=== PATIENT | female | born 1935 | race Caucasian/White ===

== ENCOUNTER 2019-06-13 09:21 | Day surgery (SDC) | payer MEDICARE ==
[~2019-06-13] VITALS: Ht 154.9 cm; Wt 94.5 kg
[2019-06-13] VITALS (14 sets, daily range): BP systolic 120–143; BP diastolic 56–94
[2019-06-13] MEDS ORDERED: fentaNYL/PF 50MCG/1 ML 2ML syringe IV ONE (09:50)
[2019-06-13] MEDS ORDERED: MIDAZolam 5mg/ml 2ml vial IV ONE (09:50)
[2019-06-13] MEDS ORDERED: normal saline 1000ml 1,000 ML IV SCH (09:50)
[2019-06-13] MEDS ORDERED: CAT2P TD (10:18)
[2019-06-13] MEDS ORDERED: LIOT25TA6 PO (10:18)
[2019-06-13] MEDS ORDERED: RIVA20TA PO (10:18)
[2019-06-13] MEDS ORDERED: HYDR-4353 PO (10:18)
[2019-06-13] MEDS ORDERED: MULT-955 PO (10:18)
[2019-06-13] MEDS ORDERED: TEST5GEL2 TOP (10:18)
[2019-06-13] MEDS ORDERED: DILT120C88 PO (10:18)
[2019-06-13] MEDS ORDERED: AMIO200T61 PO (10:18)
[2019-06-13] MEDS ORDERED: MAGN400C PO (10:18)
[2019-06-13] MEDS ORDERED: OMEG1CAP PO (10:18)
[2019-06-13] MEDS ORDERED: NIA500ERT PO (10:18)
[2019-06-13] MEDS ORDERED: ASPI81TA52 PO (10:18)
[2019-06-13] MEDS ORDERED: PROG100C11 PO (10:18)
[2019-06-13] MEDS ORDERED: VITA40TA PO (10:18)
[2019-06-13] MEDS ORDERED: DULO-31 PO (10:18)
[2019-06-13] MEDS ORDERED: METF-438 PO (10:18)
[2019-06-13] MEDS ORDERED: NEBI10TA2 PO (10:18)
[2019-06-13] MEDS ORDERED: LOSA50TA3 PO (10:18)
[2019-06-13] MEDS ORDERED: DIGO125T PO (10:18)
[2019-06-13 10:53] LABS: BASOPHILS % (AUTO) 0.3 % (0-1); EOSINOPHILS # (AUTO) 0.2 X10'3 (0-0.9); EOSINOPHILS % (AUTO) 2.7 % (0-6); HEMATOCRIT 35.8 % (35.0-45.0); HEMOGLOBIN 12.1 g/dl (12.0-16.0); LYMPHOCYTES # (AUTO) 1.2 X10'3 (1.1-4.8); LYMPHOCYTES % (AUTO) 22.2 % (21-51); MEAN CORPUSCULAR HEMOGLOBIN 30.5 PG (27.0-31.0); MEAN CORPUSCULAR HGB CONC 33.7 g/dL (33.0-36.5); MEAN CORPUSCULAR VOLUME 90.4 FL (78-98); MEAN PLATELET VOLUME 7.5 FL (7.4-10.4); MONOCYTES # (AUTO) 0.5 X10'3 (0-0.9); MONOCYTES % (AUTO) 8.5 % (2-12); NEUTROPHILS # (AUTO) 3.7 X10'3 (1.8-7.7); NEUTROPHILS % (AUTO) 66.3 % (42-75); PLATELET COUNT 245 X10'3 (140-440); RED BLOOD COUNT 3.97 X10'6 (4.20-5.60); RED CELL DISTRIBUTION WIDTH 14.6 % (11.5-14.5); WHITE BLOOD COUNT 5.6 X10'3 (4.5-11.0)
[2019-06-13 11:04] LABS: ALBUMIN 3.9 G/DL (3.4-5.0); ANION GAP 12 (8-16); BLOOD UREA NITROGEN 20 MG/DL (7-18); BUN/CREATININE RATIO 24.4 (6.6-38.0); CALCIUM 9.9 MG/DL (8.5-10.1); CHLORIDE 104 MMOL/L (99-107); CREATININE 0.82 MG/DL (0.40-0.90); GLUCOSE 105 MG/DL (70-104); MAGNESIUM 1.7 MG/DL (1.5-2.4); POTASSIUM 4.8 MMOL/L (3.5-5.1); SODIUM 140 MMOL/L (135-145); TOTAL CARBON DIOXIDE 24.3 MMOL/L (24-32); eGFR 67 ML/MIN
[2019-06-13] MEDS ORDERED: amiodarone 150mg/dext, iso-os 100 ML IV STA ×2 (11:19)
== END 2019-06-13 13:50 | disposition home or self-care (01) ==
LOC: SSTAY O 09:21
PROVIDERS: ATTEND Internal Medicine Cardiovascular Disease
DX: I48.1 Persistent atrial fibrillation (principal); I10 Essential (primary) hypertension; E78.5 Hyperlipidemia, unspecified; E03.9 Hypothyroidism, unspecified; E11.9 Type 2 diabetes mellitus without complications; G47.33 Obstructive sleep apnea (adult) (pediatric); M19.90 Unspecified osteoarthritis, unspecified site; I45.10 Unspecified right bundle-branch block; E66.09 Other obesity due to excess calories; Z68.37 Body mass index [BMI] 37.0-37.9, adult; Z88.8 Allergy status to other drugs, medicaments and biological substances; Z98.890 Other specified postprocedural states; Z90.710 Acquired absence of both cervix and uterus; Z96.659 Presence of unspecified artificial knee joint; Z79.899 Other long term (current) drug therapy; Z79.82 Long term (current) use of aspirin
CPT/HCPCS: 36415; 80048; 83735; 85025; 85610; 92960; 93005; J0282; J2250; J3010; J7030

== ENCOUNTER 2019-07-21 09:36 | Day surgery (SDC) | payer MEDICARE ==
[~2019-07-21] VITALS: Ht 154.9 cm; Wt 82.9 kg
[2019-07-21] VITALS (12 sets, daily range): BP systolic 115–137; BP diastolic 57–98
[~2019-07-21 09:36] MED LIST: AMIO200T61 PO; ASPI81TA52 PO; CAT2P TD; DIGO125T PO; DILT120C88 PO; DULO-31 PO; HYDR-4353 PO; LIOT25TA6 PO; LOSA50TA3 PO; MAGN400C PO; METF-438 PO; MULT-955 PO; NEBI10TA2 PO; NIA500ERT PO; OMEG1CAP PO; PROG100C11 PO; RIVA20TA PO; TEST5GEL2 TOP; VITA40TA PO
[2019-07-21] MEDS ORDERED: fentaNYL/PF 50MCG/1 ML 2ML syringe IV ONE (10:05)
[2019-07-21] MEDS ORDERED: normal saline 1000ml 1,000 ML IV SCH (10:05)
[2019-07-21] MEDS ORDERED: MIDAZolam 5mg/ml 2ml vial IV ONE (10:05)
[2019-07-21] MEDS ORDERED: MELA1TAB9 PO (10:22)
[2019-07-21 10:55] LABS: BASOPHILS % (AUTO) 0.4 % (0-1); EOSINOPHILS # (AUTO) 0.1 X10'3 (0-0.9); EOSINOPHILS % (AUTO) 2.4 % (0-6); HEMATOCRIT 38.4 % (35.0-45.0); HEMOGLOBIN 12.8 g/dl (12.0-16.0); LYMPHOCYTES # (AUTO) 2.2 X10'3 (1.1-4.8); LYMPHOCYTES % (AUTO) 37.4 % (21-51); MEAN CORPUSCULAR HEMOGLOBIN 29.9 PG (27.0-31.0); MEAN CORPUSCULAR HGB CONC 33.3 g/dL (33.0-36.5); MEAN CORPUSCULAR VOLUME 89.8 FL (78-98); MEAN PLATELET VOLUME 8.2 FL (7.4-10.4); MONOCYTES # (AUTO) 0.5 X10'3 (0-0.9); MONOCYTES % (AUTO) 7.9 % (2-12); NEUTROPHILS % (AUTO) 51.9 % (42-75); PLATELET COUNT 284 X10'3 (140-440); RED BLOOD COUNT 4.28 X10'6 (4.20-5.60); WHITE BLOOD COUNT 5.8 X10'3 (4.5-11.0)
[2019-07-21 11:06] LABS: ALBUMIN 3.4 G/DL (3.4-5.0); ANION GAP 7 (8-16); BLOOD UREA NITROGEN 18 MG/DL (7-18); BUN/CREATININE RATIO 22.5 (6.6-38.0); CALCIUM 9.7 MG/DL (8.5-10.1); CHLORIDE 106 MMOL/L (99-107); GLUCOSE 109 MG/DL (70-104); MAGNESIUM 1.8 MG/DL (1.5-2.4); POTASSIUM 4.2 MMOL/L (3.5-5.1); SODIUM 141 MMOL/L (135-145); TOTAL CARBON DIOXIDE 27.9 MMOL/L (24-32); eGFR 69 ML/MIN
--- NOTE | 2019-07-21 12:40 | NUR ---
RT was called. MD at bedside.
--- NOTE | 2019-07-21 12:45 | NUR ---
CORRECTION: PT RECEIVED VERSED, NOT MORPHINE, CORRECTION MADE ON ADMINISTRATION RECORD
== END 2019-07-21 14:50 | disposition home or self-care (01) ==
LOC: SSTAY O 09:36
PROVIDERS: ATTEND Internal Medicine Cardiovascular Disease
DX: I48.19 Other persistent atrial fibrillation (principal); I10 Essential (primary) hypertension; I47.1 Supraventricular tachycardia; E78.5 Hyperlipidemia, unspecified; E11.9 Type 2 diabetes mellitus without complications; G47.33 Obstructive sleep apnea (adult) (pediatric); E03.9 Hypothyroidism, unspecified; M19.90 Unspecified osteoarthritis, unspecified site; E66.09 Other obesity due to excess calories; Z68.34 Body mass index [BMI] 34.0-34.9, adult; Z79.899 Other long term (current) drug therapy; Z79.82 Long term (current) use of aspirin; Z90.710 Acquired absence of both cervix and uterus; Z98.890 Other specified postprocedural states; Z88.1 Allergy status to other antibiotic agents; Z88.8 Allergy status to other drugs, medicaments and biological substances; Z72.89 Other problems related to lifestyle
CPT/HCPCS: 36415; 80048; 83735; 85025; 85610; 92960; 93005; 94760; J2250; J3010; J7030

== ENCOUNTER 2019-08-04 07:25 | Inpatient (IN) | payer MEDICARE ==
[2019-07-30 13:17] LABS: BASOPHILS % (AUTO) 0.3 % (0-1); EOSINOPHILS # (AUTO) 0.1 X10'3 (0-0.9); EOSINOPHILS % (AUTO) 1.7 % (0-6); LYMPHOCYTES # (AUTO) 1.7 X10'3 (1.1-4.8); LYMPHOCYTES % (AUTO) 24.5 % (21-51); MEAN CORPUSCULAR HEMOGLOBIN 30.1 PG (27.0-31.0); MEAN CORPUSCULAR HGB CONC 33.3 g/dL (33.0-36.5); MEAN CORPUSCULAR VOLUME 90.4 FL (78-98); MEAN PLATELET VOLUME 8.4 FL (7.4-10.4); MONOCYTES # (AUTO) 0.6 X10'3 (0-0.9); MONOCYTES % (AUTO) 8.1 % (2-12); NEUTROPHILS # (AUTO) 4.5 X10'3 (1.8-7.7); NEUTROPHILS % (AUTO) 65.4 % (42-75); PRE OP HEMATOCRIT 36.2 % (35.0-45.0); PRE OP HEMOGLOBIN 12.1 g/dL (12.0-16.0); PRE OP PLATELET COUNT 262 X10'3 (140-440); RED CELL DISTRIBUTION WIDTH 15.6 % (11.5-14.5)
[2019-07-30 13:28] LABS: PRE OP PROTIME 16.6 SECONDS (9.0-12.0)
[2019-07-30 13:32] LABS: HEMOGLOBIN A1C 6.3 % (4.5-6.2); PRE OP INR 1.6 INR
[2019-07-30 13:39] LABS: ALBUMIN 3.3 G/DL (3.4-5.0); ALBUMIN/GLOBULIN RATIO 0.7 (1.1-1.5); ALKALINE PHOSPHATASE 72 IU/L (46-116); BLOOD UREA NITROGEN 17 MG/DL (7-18); BUN/CREATININE RATIO 21.3 (6.6-38.0); CALCIUM 9.4 MG/DL (8.5-10.1); CHLORIDE 105 MMOL/L (99-107); PRE OP ALT 45 U/L (30-65); PRE OP ANION GAP 7 (8-16); PRE OP AST 27 U/L (10-37); PRE OP BILIRUB, TOTAL 0.5 MG/DL (0.0-1.0); PRE OP GLUCOSE 105 MG/DL (70-104); PRE OP POTASSIUM 4.3 MMOL/L (3.4-5.1); PRE OP SODIUM 139 MMOL/L (135-145); TOTAL CARBON DIOXIDE 27.5 MMOL/L (24-32); TOTAL PROTEIN 7.8 G/DL (6.4-8.2); eGFR 69 ML/MIN
[2019-08-04] VITALS (13 sets, daily range): BP systolic 118–148; BP diastolic 66–109
[~2019-08-04] VITALS: Ht 154.9 cm; Wt 81.6 kg
[~2019-08-04 07:25] MED LIST changes: +BETA300T PO; +CHOL100053 PO; +CHRO400T10 PO; -LIOT25TA6 PO; -LOSA50TA3 PO; -MAGN400C PO; +MELA1TAB9 PO; -OMEG1CAP PO; +OMEG1CAP46 PO; +PRAS1TAB3 PO; +RAW PROBIOTICS; -TEST5GEL2 TOP; +TESTOSTERONE; +THIO300C PO; +THRE500T PO; +THYR120T2 PO; +[UNRECOGNIZED DRUG - CODE]; +[UNRECOGNIZED DRUG - CODE] PO; +[UNRECOGNIZED DRUG - OTHER]; +[UNRECOGNIZED DRUG - OTHER]; +[UNRECOGNIZED DRUG - OTHER]
[2019-08-04] MEDS ORDERED: LIDOcaine 1% (10mg/ml) 2ml vial ONE (07:52)
[2019-08-04 10:04] LABS: PRE OP PROTIME 10.3 SECONDS (9.0-12.0)
[2019-08-04] MEDS ORDERED: albuterol 2.5 MG/3 ML nebule NEB ONE (12:30)
[2019-08-04] MEDS ORDERED: ringers solution, lacted 1,000 ML IV SCH ×2 (12:30→14:54)
[2019-08-04] MEDS ORDERED: vancomycin inj 1,500 MG in normal saline 300ml IV soln IV ONE (12:30)
[2019-08-04] MEDS ORDERED: DOCUMENT DATE & TIME OF BETA-BLOCKER PO ONE (12:30)
[2019-08-04] MEDS ORDERED: famotidine 20mg tablet PO ONE (12:30)
[2019-08-04] MEDS ORDERED: cefazolin/dext.iso 2gm/100 ML IV ONE (12:30)
[2019-08-04] MEDS ORDERED: fentaNYL/PF 50MCG/1 ML 2ML syringe ONE (13:07)
[2019-08-04] MEDS ORDERED: MIDAZolam 5mg/5ml vial ONE (13:08)
[2019-08-04] MEDS ORDERED: dexamethasone sod phosphate 4mg/ml inj. ONE (13:10)
[2019-08-04] MEDS ORDERED: propofol inj 20 ML IV ONE (13:10)
[2019-08-04] MEDS ORDERED: ROPIVAcaine 0.5% (5mg/ml) 30ml vial ONE (13:11)
[2019-08-04] MEDS ORDERED: rocuronium 10mg/ml inj IV ONE (13:17)
[2019-08-04] MEDS ORDERED: sevoflurane 250ml liquid IH ONE (13:17)
[2019-08-04] MEDS ORDERED: vancomycin 1,000mg inj ONE (14:35)
[2019-08-04] MEDS ORDERED: meperidine/PF 25mg/ml syringe IV PRN ×3 (14:55)
[2019-08-04] MEDS ORDERED: morphine 4 MG/ML inj SYRINge IV PRN ×2 (14:55)
[2019-08-04] MEDS ORDERED: ondansetron/PF 4mg/2ml inj IV PRN ×2 (14:55→16:35)
[2019-08-04] MEDS ORDERED: ondansetron/PF 4mg/2ml inj ONE (14:55)
[2019-08-04] MEDS ORDERED: proCHLORperazine 10 MG/2 ml inj IV PRN (14:55)
[2019-08-04] MEDS ORDERED: tranexamic acid inj. 810 MG in normal saline 100ml IV soln 100 ML IV ONE ×5 (15:00→19:30)
--- NOTE | 2019-08-04 16:10 | NUR ---
Received from OR via BED , accompanied by Anesthesiologist DR CORTEZ and report given by Anesthesiolgist. PATIENT WAKING UP, DENIES PAIN, V/S WNL, NEUROVASCULAR CHECKS INTACT, 20G PIV RUE , DRESSING TO LEFT SHOULDER CDI W/ COLD POWDER PACK AND SLING NAND ON QUE BALL AT 4ML/HR W/ SCD ON.
[2019-08-04] MEDS: ROPIVAcaine 0.2%/PF PAIN PUMP 550 ML INTERSCALE SCH (16:15)
[2019-08-04] MEDS ORDERED: oxyCODONE IR 5mg (immed. release) tablet PO PRN (16:35)
[2019-08-04] MEDS ORDERED: diphenhydrAMINE 25mg capsule PO PRN ×2 (16:35)
[2019-08-04] MEDS ORDERED: acetaminophen 325mg tablet PO PRN (16:35)
[2019-08-04] MEDS ORDERED: HYDROmorphone inj. 0.5 MG/0.5 ML DISP.SYRIN IV PRN (16:35)
[2019-08-04] MEDS ORDERED: magnesium hydroxide 30ml (MOM) UD suspension PO PRN (16:35)
[2019-08-04] MEDS ORDERED: HYDROmorphone 1 mg/ml syringe IV PRN (16:35)
[2019-08-04] MEDS ORDERED: bisacodyl 10mg suppository rectal RC PRN (16:35)
[2019-08-04 17:29] LABS: APPEARANCE,SYNOVIAL FLUID CLOUDY; COLOR,SYNOVIAL FLUID YELLOW; SYN WBC 415 /CU MM (0-200)
[2019-08-04 17:30] LABS: SYN RBC 3600 /CU MM (0)
[2019-08-04] MEDS ORDERED: DOXYCYCLINE 100MG CAPSULE PO SCH (17:30)
--- NOTE | 2019-08-04 17:40 | NUR ---
PATIENT A&OX4, DENIES PAIN, V/S WNL, NEUROVASCULAR CHECKS INTACT, 20G PIV RUE , DRESSING TO LEFT SHOULDER CDI W/ COLD POWDER PACK AND SLING NAND ON QUE BALL AT 4ML/HR W/ SCD ON. PATIENT TAKEN TO 4020B WITH ALL BELONGINGS AND HOOKED UP TO MONITORS IN ROOM AND REPORT GIVEN TO EIGHT ARM OPERATOR WHO HAS TAKEN OVER PATIENT CARE.
[2019-08-04 17:42] LABS: LYMPHOCYTES,SYNOVIAL FLUID 70 % (0-75); MONOCYTES,SYNOVIAL FLUID 26 % (0-0); NEUTROPHILS,SYNOVIAL FLUID 4 % (0-25); SYNOVIAL LINING CELLS FEW
--- NOTE | 2019-08-04 18:20 | NUR ---
Received report from Dasha MENEZES, assumed care of patient.
[2019-08-04 19:14] LABS: ALANINE AMINOTRANSFERASE 34 U/L (12-78); ALBUMIN 3.3 G/DL (3.4-5.0); ALBUMIN/GLOBULIN RATIO 0.7 (1.1-1.5); ALKALINE PHOSPHATASE 73 IU/L (46-116); ASPARTATE AMINO TRANSFERASE 34 U/L (10-37); BILIRUBIN,DIRECT 0.1 MG/DL (0-0.3); BILIRUBIN,TOTAL 0.3 MG/DL (0.1-1.0); TOTAL PROTEIN 7.8 G/DL (6.4-8.2)
[2019-08-04] MEDS ORDERED: vancomycin/NS 1 GM ADD-VANTAGE 250 ML IV SCH (20:00)
[2019-08-04] MEDS: acetaminophen 325mg tablet PO SCH (20:27)
[2019-08-04] MEDS: sennosides 8.6mg tablet PO SCH (20:27)
[2019-08-04] MEDS: Melatonin 3mg tablet PO SCH (20:27)
[2019-08-04] MEDS: metFORMIN 500mg tablet PO SCH (20:28)
[2019-08-04] MEDS: metoprolol tartrate 50mg tablet PO SCH (20:28)
[2019-08-04] MEDS: potassium cl 20mEq in 1/2 NS 1,000 ML IV SCH (20:29)
--- NOTE | 2019-08-04 21:46 | NUR ---
In collecting post op vital signs from machine it was observed that not all vital signs have been recorded. Pt currently has VS WNL, which has been assessed throughout the shift. Pt will continue to have vital signs taken per protocol. Addendum: 08/04/19 at 2147 by Zainab Vega RN Amended: Links added.
[2019-08-05] MEDS: oxyCODONE IR 5mg (immed. release) tablet PO PRN ×3 (00:27→19:06)
--- NOTE | 2019-08-05 01:15 | NUR ---
Received report from CLIF Lou. Assumed patient care.
[2019-08-05 02:00] VITALS: BP 118/78
[2019-08-05] MEDS: acetaminophen 325mg tablet PO SCH ×4 (02:00→19:55)
[2019-08-05] MEDS: potassium cl 20mEq in 1/2 NS 1,000 ML IV SCH ×2 (04:00→08:31)
[2019-08-05 06:00] VITALS: BP 156/60
--- NOTE | 2019-08-05 06:04 | NUR ---
Report given to Dasha MENEZES.
[2019-08-05 06:19] LABS: BASOPHILS % (AUTO) 0.1 % (0-1); EOSINOPHILS % (AUTO) 0 % (0-6); HEMATOCRIT 34.3 % (35.0-45.0); HEMOGLOBIN 11.3 g/dl (12.0-16.0); LYMPHOCYTES # (AUTO) 1.7 X10'3 (1.1-4.8); LYMPHOCYTES % (AUTO) 14.1 % (21-51); MEAN CORPUSCULAR HEMOGLOBIN 29.8 PG (27.0-31.0); MEAN CORPUSCULAR HGB CONC 33.1 g/dL (33.0-36.5); MEAN CORPUSCULAR VOLUME 90.2 FL (78-98); MEAN PLATELET VOLUME 8.1 FL (7.4-10.4); MONOCYTES # (AUTO) 0.2 X10'3 (0-0.9); MONOCYTES % (AUTO) 1.8 % (2-12); NEUTROPHILS # (AUTO) 9.8 X10'3 (1.8-7.7); PLATELET COUNT 233 X10'3 (140-440); RED CELL DISTRIBUTION WIDTH 15.7 % (11.5-14.5); WHITE BLOOD COUNT 11.7 X10'3 (4.5-11.0)
[2019-08-05 06:35] LABS: ANION GAP 11 (8-16); CHLORIDE 105 MMOL/L (99-107); POTASSIUM 5.3 MMOL/L (3.5-5.1); SODIUM 137 MMOL/L (135-145); TOTAL CARBON DIOXIDE 21.5 MMOL/L (24-32)
--- NOTE | 2019-08-05 06:35 | NUR ---
Patient in room ORTHO 4020. I have received report from Zainab Cagle RN and had the opportunity to ask questions and assume patient care.
[2019-08-05] MEDS: OMEGA-3/DHA/EPA/FISH OIL 1 EACH CAPSULE.DR PO SCH (08:00)
[2019-08-05] MEDS: [UNRECOGNIZED DRUG - OTHER] TP SCH (08:00)
[2019-08-05] MEDS ORDERED: TYPE IN GENERIC & BRAND NAME OF PATIENT MED STRENGTH & FORM PO SCH (08:00)
[2019-08-05] MEDS: [UNRECOGNIZED DRUG - OTHER] PO SCH (08:00)
[2019-08-05] MEDS ORDERED: ALPHA LIPOIC ACID PO SCH (08:00)
[2019-08-05] MEDS: niacin 500mg ER (Niaspan) tablet PO SCH (08:00)
[2019-08-05] MEDS: progesterone, micronized 100mg capsule PO SCH (08:00)
[2019-08-05] MEDS ORDERED: CHROMIUM AMINO ACID CHELATE PO SCH (08:00)
[2019-08-05] MEDS ORDERED: METHYLSULFONYLMETHANE PO SCH (08:00)
[2019-08-05] MEDS: TESTOSTERONE PUMP TP SCH (08:00)
[2019-08-05] MEDS: VITAMIN K2 100 MCG PO SCH (08:00)
[2019-08-05] MEDS ORDERED: THREONINE PO SCH (08:00)
[2019-08-05] MEDS: VANCOmycin 1250MG/NS 250ml Bag 250 ML IV SCH ×2 (09:44→20:40)
[2019-08-05 10:00] VITALS: BP 112/47
[2019-08-05] MEDS: diltiazem CD 120mg capsule (once-daily) PO SCH (10:02)
[2019-08-05] MEDS: amiodarone 200mg tablet PO SCH (10:03)
[2019-08-05] MEDS: metFORMIN 500mg tablet PO SCH ×2 (10:03→19:55)
[2019-08-05] MEDS: metoprolol tartrate 50mg tablet PO SCH ×2 (10:05→19:56)
[2019-08-05] MEDS: digoxin 125mcg (0.125mg) tablet PO SCH (10:05)
[2019-08-05] MEDS: multivitamins, therapeutics tablet PO SCH (10:08)
[2019-08-05] MEDS: thyroid, pork 30mg tablet PO SCH (10:08)
[2019-08-05] MEDS: rivaroxaban 20mg tablet PO SCH (10:09)
[2019-08-05] MEDS: vitamin D (cholecalciferol) 1,000 unit tablet PO SCH (10:09)
[2019-08-05] MEDS: aspirin 325mg tablet PO SCH (10:10)
[2019-08-05] MEDS: ROPIVAcaine 0.2%/PF PAIN PUMP 550 ML INTERSCALE SCH (13:53)
--- NOTE | 2019-08-05 14:00 | NUR ---
Pt reports she "may have bumped her left shoulder." C/O pain "4-5" at this time. ON Q currently set at 4ml/hr. ON Q increased to 6ml/hr at 1400. Reassessed approximately 35 minutes later and pt reports shoulder is feeling much better and denies pain at this time. Will continue to monitor.
[2019-08-05] MEDS: duloxetine 30mg CAPSULE.DR PO SCH (14:12)
[2019-08-05 18:00] VITALS: BP 122/61
--- NOTE | 2019-08-05 18:38 | NUR ---
Problems reprioritized. Patient report given, questions answered & plan of care reviewed with CLIF Scott.
[2019-08-05] MEDS: lactobacillus rhamnosus 10,000 MMU CELLS/CAPSULE PO SCH (19:55)
[2019-08-05] MEDS: sennosides 8.6mg tablet PO SCH (20:40)
[2019-08-05] MEDS: Melatonin 3mg tablet PO SCH (20:40)
[2019-08-05 22:00] VITALS: BP 107/44
[2019-08-06] MEDS: oxyCODONE IR 5mg (immed. release) tablet PO PRN ×3 (01:55→13:20)
[2019-08-06] MEDS: acetaminophen 325mg tablet PO SCH ×3 (01:56→13:21)
[2019-08-06 05:18] LABS: BASOPHILS % (AUTO) 0 % (0-1); EOSINOPHILS % (AUTO) 0 % (0-6); HEMATOCRIT 31.1 % (35.0-45.0); HEMOGLOBIN 10.5 g/dl (12.0-16.0); LYMPHOCYTES # (AUTO) 1.8 X10'3 (1.1-4.8); LYMPHOCYTES % (AUTO) 14.9 % (21-51); MEAN CORPUSCULAR HEMOGLOBIN 30.1 PG (27.0-31.0); MEAN CORPUSCULAR HGB CONC 33.7 g/dL (33.0-36.5); MEAN CORPUSCULAR VOLUME 89.1 FL (78-98); MONOCYTES # (AUTO) 0.9 X10'3 (0-0.9); MONOCYTES % (AUTO) 7.7 % (2-12); NEUTROPHILS # (AUTO) 9.2 X10'3 (1.8-7.7); NEUTROPHILS % (AUTO) 77.4 % (42-75); PLATELET COUNT 222 X10'3 (140-440); RED BLOOD COUNT 3.49 X10'6 (4.20-5.60); WHITE BLOOD COUNT 11.9 X10'3 (4.5-11.0)
[2019-08-06 05:33] LABS: ALBUMIN 2.9 G/DL (3.4-5.0); ANION GAP 9 (8-16); BLOOD UREA NITROGEN 17 MG/DL (7-18); BUN/CREATININE RATIO 17.2 (6.6-38.0); C-REACTIVE PROTEIN 0.46 MG/DL (0.0-0.5); CALCIUM 9.1 MG/DL (8.5-10.1); CHLORIDE 107 MMOL/L (99-107); CREATININE 0.99 MG/DL (0.40-0.90); GLUCOSE 138 MG/DL (70-104); POTASSIUM 4.5 MMOL/L (3.5-5.1); SODIUM 142 MMOL/L (135-145); TOTAL CARBON DIOXIDE 26.2 MMOL/L (24-32); eGFR 54 ML/MIN
[2019-08-06 06:00] VITALS: BP_SYST 125; BP_SYST 132; BP_DIAS 67; BP_DIAS 71
[2019-08-06] MEDS: TESTOSTERONE PUMP TP SCH (08:00)
[2019-08-06] MEDS: metoprolol tartrate 50mg tablet PO SCH ×2 (08:00→20:54)
[2019-08-06] MEDS: cloNIDine 0.2 MG/24 HR patch (7 day patch) TD SCH (08:00)
[2019-08-06] MEDS: [UNRECOGNIZED DRUG - OTHER] PO SCH (08:00)
[2019-08-06] MEDS: amiodarone 200mg tablet PO SCH (08:00)
[2019-08-06] MEDS: OMEGA-3/DHA/EPA/FISH OIL 1 EACH CAPSULE.DR PO SCH (08:00)
[2019-08-06] MEDS: VITAMIN K2 100 MCG PO SCH (08:00)
[2019-08-06] MEDS: diltiazem CD 120mg capsule (once-daily) PO SCH (08:00)
[2019-08-06] MEDS: progesterone, micronized 100mg capsule PO SCH (08:00)
[2019-08-06] MEDS: [UNRECOGNIZED DRUG - OTHER] TP SCH (08:00)
[2019-08-06] MEDS: aspirin 325mg tablet PO SCH (08:52)
[2019-08-06] MEDS: metFORMIN 500mg tablet PO SCH ×2 (08:52→20:54)
[2019-08-06] MEDS: multivitamins, therapeutics tablet PO SCH (08:52)
[2019-08-06] MEDS: thyroid, pork 30mg tablet PO SCH (08:53)
[2019-08-06] MEDS: lactobacillus rhamnosus 10,000 MMU CELLS/CAPSULE PO SCH ×2 (08:53→20:54)
[2019-08-06] MEDS: duloxetine 30mg CAPSULE.DR PO SCH (08:54)
[2019-08-06] MEDS: vitamin D (cholecalciferol) 1,000 unit tablet PO SCH (08:54)
[2019-08-06] MEDS: rivaroxaban 20mg tablet PO SCH (08:54)
[2019-08-06] MEDS: niacin 500mg ER (Niaspan) tablet PO SCH (08:54)
[2019-08-06] MEDS: digoxin 125mcg (0.125mg) tablet PO SCH (09:02)
[2019-08-06 10:00] VITALS: BP 132/71
[2019-08-06] MEDS: VANCOmycin 1250MG/NS 250ml Bag 250 ML IV SCH ×2 (11:48→20:55)
[2019-08-06 16:30] VITALS: BP 140/92
--- NOTE | 2019-08-06 16:30 | NUR ---
At 16:25 loud sound from patients room was heard. Charge nurse Darlyn, and two patient cares techs and myself all ran to patients room. Patient was found prone on the floor. Assessed patients condition, patient had small amount of blood coming from nose. Patient was awake and alert. Patient was assisted back to bed with help of Physical therapist and outpatient facility physical therapist using Tempo lift. Patient stated "I was reaching back for my smoothie that I was trying to hide and my feet slid out from under me". Physical therapy had just worked with patient, had her in high back chair. Patient stated "I didn't want to bother anyone, I thought I could easily reach my smoothie." Shelbie Farrar PAN SHAKER was notified, CT of head ordered and Xray of shoulder ordered. Patient appeared to fall on heard, small hemotoma on right forehead, bruising to left eyelid and laceration on left side of bridge of nose. Will continue to monitor patients status. Will continue to educate patient on fall reduction, using the call light when needs to get up. Vital signs post fall: T:97.8, HR 80, RR 16, O2:95% RA, BP 140/92(104) Pain 2
[2019-08-06] MEDS ORDERED: acetaminophen 325mg tablet PO PRN (16:35)
[2019-08-06 18:00] VITALS: BP 140/92
--- NOTE | 2019-08-06 18:36 | NUR ---
Problems reprioritized. Patient report given, questions answered & plan of care reviewed with Zainab Dumont RN.
[2019-08-06] MEDS ORDERED: VANCOMYCIN LEVEL IV ONE (20:30)
[2019-08-06] MEDS: sennosides 8.6mg tablet PO SCH (20:55)
[2019-08-06] MEDS: Melatonin 3mg tablet PO SCH (20:55)
[2019-08-06 22:00] VITALS: BP 119/68
[2019-08-07 04:55] LABS: BASOPHILS % (AUTO) 0.1 % (0-1); EOSINOPHILS % (AUTO) 0.3 % (0-6); HEMATOCRIT 30.2 % (35.0-45.0); HEMOGLOBIN 10.1 g/dl (12.0-16.0); LYMPHOCYTES # (AUTO) 3.2 X10'3 (1.1-4.8); LYMPHOCYTES % (AUTO) 34.2 % (21-51); MEAN CORPUSCULAR HEMOGLOBIN 30.5 PG (27.0-31.0); MEAN CORPUSCULAR HGB CONC 33.6 g/dL (33.0-36.5); MEAN CORPUSCULAR VOLUME 90.8 FL (78-98); MEAN PLATELET VOLUME 8.1 FL (7.4-10.4); MONOCYTES # (AUTO) 0.8 X10'3 (0-0.9); MONOCYTES % (AUTO) 8.3 % (2-12); NEUTROPHILS # (AUTO) 5.3 X10'3 (1.8-7.7); NEUTROPHILS % (AUTO) 57.1 % (42-75); PLATELET COUNT 200 X10'3 (140-440); RED BLOOD COUNT 3.33 X10'6 (4.20-5.60); RED CELL DISTRIBUTION WIDTH 16.4 % (11.5-14.5); WHITE BLOOD COUNT 9.3 X10'3 (4.5-11.0)
[2019-08-07] MEDS: oxyCODONE IR 5mg (immed. release) tablet PO PRN ×2 (05:31→10:27)
[2019-08-07 06:00] VITALS: BP 132/66
--- NOTE | 2019-08-07 06:15 | NUR ---
Problems reprioritized. Patient report given, questions answered & plan of care reviewed with Vance RN.
--- NOTE | 2019-08-07 06:39 | NUR ---
Patient in room ORTHO 4020. I have received report from Zainab Dumont RN and had the opportunity to ask questions and assume patient care.
[2019-08-07] MEDS: metFORMIN 500mg tablet PO SCH (07:40)
[2019-08-07] MEDS: diltiazem CD 120mg capsule (once-daily) PO SCH (07:40)
[2019-08-07] MEDS: OMEGA-3/DHA/EPA/FISH OIL 1 EACH CAPSULE.DR PO SCH (07:40)
[2019-08-07] MEDS: amiodarone 200mg tablet PO SCH (07:40)
[2019-08-07] MEDS: lactobacillus rhamnosus 10,000 MMU CELLS/CAPSULE PO SCH (07:40)
[2019-08-07] MEDS: duloxetine 30mg CAPSULE.DR PO SCH (07:40)
[2019-08-07] MEDS: metoprolol tartrate 50mg tablet PO SCH (07:42)
[2019-08-07] MEDS: thyroid, pork 30mg tablet PO SCH (07:43)
[2019-08-07] MEDS: vitamin D (cholecalciferol) 1,000 unit tablet PO SCH (07:43)
[2019-08-07] MEDS: rivaroxaban 20mg tablet PO SCH (07:43)
[2019-08-07] MEDS: niacin 500mg ER (Niaspan) tablet PO SCH (07:43)
[2019-08-07] MEDS: multivitamins, therapeutics tablet PO SCH (07:43)
[2019-08-07] MEDS: aspirin 325mg tablet PO SCH (07:44)
[2019-08-07] MEDS: cloNIDine 0.2 MG/24 HR patch (7 day patch) TD SCH (07:50)
[2019-08-07] MEDS ORDERED: vancomycin/NS 1 GM ADD-VANTAGE 250 ML IV SCH (09:00)
[2019-08-07 09:54] VITALS: BP 119/72
[2019-08-07] MEDS: digoxin 125mcg (0.125mg) tablet PO SCH (10:13)
--- NOTE | 2019-08-07 14:32 | NUR ---
Patient stable for transfer to [facility] today. All belongings sent with patient. PIV out, PICC line remained for Antibiotic therapy.
--- NOTE | 2019-08-07 14:39 | NUR ---
Joint replacement consult: Pt/daughter seen by DALE for written/verbal high protein ed w/ RD contact information provided. Addendum: 08/07/19 at [address] Amended: Links added.
[2019-08-08] MEDS ORDERED: VANCOMYCIN LEVEL IV ONE (20:30)
== END 2019-08-07 12:50 | DRG 496 ==
LOC: PAS IN 07:25 → EDSTATUS 09:30 → ORTHO 4S 17:45
PROVIDERS: ADMIT Orthopaedic Surgery; ATTEND Orthopaedic Surgery
PROC: 3E0T3BZ Introduction of Anesthetic Agent into Peripheral Nerves and Plexi, Percutaneous Approach (ICD-10-PCS; 2019-08-04)
PROC: 0RHK08Z Insertion of Spacer into Left Shoulder Joint, Open Approach (ICD-10-PCS; 2019-08-04)
PROC: 0RPK0JZ Removal of Synthetic Substitute from Left Shoulder Joint, Open Approach (ICD-10-PCS; principal; 2019-08-04 13:17)
PROC: 02HV33Z Insertion of Infusion Device into Superior Vena Cava, Percutaneous Approach (ICD-10-PCS; 2019-08-06)
PROC: 5A09357 Assistance with Respiratory Ventilation, Less than 24 Consecutive Hours, Continuous Positive Airway Pressure (ICD-10-PCS; 2019-08-06)
PROC: 5A09357 Assistance with Respiratory Ventilation, Less than 24 Consecutive Hours, Continuous Positive Airway Pressure (ICD-10-PCS; 2019-08-07)
DX: T84.59XA Infection and inflammatory reaction due to other internal joint prosthesis, initial encounter (principal); D62 Acute posthemorrhagic anemia; M75.122 Complete rotator cuff tear or rupture of left shoulder, not specified as traumatic; E03.9 Hypothyroidism, unspecified; E11.9 Type 2 diabetes mellitus without complications; E78.5 Hyperlipidemia, unspecified; I10 Essential (primary) hypertension; I48.91 Unspecified atrial fibrillation; F32.9 Major depressive disorder, single episode, unspecified; D72.819 Decreased white blood cell count, unspecified; G89.29 Other chronic pain; Z96.653 Presence of artificial knee joint, bilateral; Z96.611 Presence of right artificial shoulder joint; Y83.1 Surgical operation with implant of artificial internal device as the cause of abnormal reaction of the patient, or of later complication, without mention of misadventure at the time of the procedure; Z88.1 Allergy status to other antibiotic agents; Z88.6 Allergy status to analgesic agent; Z79.899 Other long term (current) drug therapy; Z79.890 Hormone replacement therapy; Z88.0 Allergy status to penicillin; Z90.710 Acquired absence of both cervix and uterus; Z98.51 Tubal ligation status; Z86.14 Personal history of Methicillin resistant Staphylococcus aureus infection; Y92.89 Other specified places as the place of occurrence of the external cause; W07.XXXA Fall from chair, initial encounter; Y93.89 Activity, other specified; Y92.238 Other place in hospital as the place of occurrence of the external cause; Y99.8 Other external cause status
CPT/HCPCS: 36415; 36569; 70450; 71045; 71046; 73020; 76937; 80048; 80051; 80053; 80076; 80162; 80202; 82948; 83036; 84439; 84443; 85025; 85610; 85651; 85730; 86140; 86885; 86900; 86901; 87015; 87070; 87075; 87081; 87102; 89051; 97110; 97116; 97162; 97530; A4565; A4618; A7000; C1713; C1776; G0378; J1100; J2001; J2250; J2405; J2704; J2795; J3010; J3370; J3480; J7120

== ENCOUNTER 2019-08-13 17:29 | Inpatient (IN) | payer MEDICARE ==
[~2019-08-13] VITALS: Ht 157.5 cm; Wt 95.0 kg
[2019-08-13 18:57] LABS: BASOPHILS % (AUTO) 0.6 % (0-1); EOSINOPHILS # (AUTO) 0.1 X10'3 (0-0.9); EOSINOPHILS % (AUTO) 1.1 % (0-6); HEMATOCRIT 25.4 % (35.0-45.0); HEMOGLOBIN 8.5 g/dl (12.0-16.0); LYMPHOCYTES % (AUTO) 11.9 % (21-51); MEAN CORPUSCULAR HEMOGLOBIN 30.2 PG (27.0-31.0); MEAN CORPUSCULAR HGB CONC 33.5 g/dL (33.0-36.5); MEAN CORPUSCULAR VOLUME 90.3 FL (78-98); MEAN PLATELET VOLUME 7.6 FL (7.4-10.4); MONOCYTES # (AUTO) 0.8 X10'3 (0-0.9); MONOCYTES % (AUTO) 9.4 % (2-12); NEUTROPHILS # (AUTO) 6.5 X10'3 (1.8-7.7); PLATELET COUNT 335 X10'3 (140-440); RED BLOOD COUNT 2.81 X10'6 (4.20-5.60); RED CELL DISTRIBUTION WIDTH 15.8 % (11.5-14.5); WHITE BLOOD COUNT 8.5 X10'3 (4.5-11.0)
[2019-08-13 19:07] LABS: ALANINE AMINOTRANSFERASE 313 U/L (12-78); ALBUMIN 2.5 G/DL (3.4-5.0); ALBUMIN/GLOBULIN RATIO 0.6 (1.1-1.5); ALKALINE PHOSPHATASE 207 IU/L (46-116); ANION GAP 12 (8-16); ASPARTATE AMINO TRANSFERASE 344 U/L (10-37); BILIRUBIN,TOTAL 0.7 MG/DL (0.1-1.0); BLOOD UREA NITROGEN 53 MG/DL (7-18); BUN/CREATININE RATIO 14.8 (6.6-38.0); CHLORIDE 98 MMOL/L (99-107); CREATININE 3.57 MG/DL (0.40-0.90); GLUCOSE 156 MG/DL (70-104); POTASSIUM 5.5 MMOL/L (3.5-5.1); SODIUM 130 MMOL/L (135-145); TOTAL CARBON DIOXIDE 19.9 MMOL/L (24-32); TOTAL PROTEIN 6.9 G/DL (6.4-8.2); eGFR 12 ML/MIN
[2019-08-13 19:22] LABS: CLARITY,URINE CLOUDY (Clear); COLOR,URINE YELLOW (Yellow); GLUCOSE, URINE NEGATIVE (Neg); KETONES,URINE NEGATIVE (Neg); LEUKOCYTE ESTERASE ,URINE NEGATIVE (Neg); NITRITES, URINE NEGATIVE (Neg); OCCULT BLOOD,URINE NEGATIVE (Neg); PROTEIN,URINE TRACE mg/dl (Neg); UROBILINOGEN,URINE 0.2 E.U/dL (0.2-1.0)
[2019-08-13 19:25] LABS: UA COLLECTION TYPE STRAIGHT CATH
[2019-08-13 19:30] LABS: SQUAMOUS EPITHELIAL CELL,UR FEW /LPF (FEW); TRANSITIONAL EPI CELLS,URINE FEW /HPF
[2019-08-13 19:32] LABS: AMORPHOUS URATES 4+; BACTERIA,URINE FEW /HPF (Neg); RBC,URINE NONE SEEN /HPF (0-2); WBC,URINE 0-4 /HPF (0-4)
[2019-08-13] MEDS ORDERED: VANC1VIA21 IV (20:07)
[2019-08-13] MEDS ORDERED: FURO-150 PO (20:07)
[2019-08-13] MEDS ORDERED: LACTC PO (20:07)
[2019-08-13] MEDS ORDERED: METO50TA17 PO (20:07)
[2019-08-13] MEDS ORDERED: NA P230E RC (20:07)
[2019-08-13] MEDS ORDERED: SENN-162 PO (20:07)
[2019-08-13] MEDS ORDERED: ACET-2119 PO (20:07)
[2019-08-13] MEDS ORDERED: NEBI10TA2 PO (20:07)
[2019-08-13] MEDS ORDERED: ALPH100C PO (20:07)
[2019-08-13] MEDS ORDERED: PHYT100T PO (20:07)
[2019-08-13] MEDS ORDERED: MAGN400O6 PO (20:07)
[2019-08-13] MEDS ORDERED: BISA10SU60 RC (20:07)
[2019-08-13] MEDS ORDERED: OMEG-145 PO (20:07)
[2019-08-13] MEDS ORDERED: normal saline 1000ml 1,000 ML IV SCH (20:48)
[2019-08-13] MEDS ORDERED: ondansetron/PF 4mg/2ml inj IV PRN (20:50)
[2019-08-13] MEDS ORDERED: bisacodyl 10mg suppository rectal RC PRN (20:55)
--- NOTE | 2019-08-13 22:00 | NUR ---
patient arrived. oriented to room. daughter at bedside. call light in reach. bed alarm active. [facility] noted pt not very oriented. daughter says it comes and goes.
[2019-08-13 22:23] VITALS: BP 111/52
[2019-08-13] MEDS: Melatonin 3mg tablet PO SCH (23:14)
--- NOTE | 2019-08-13 23:16 | NUR ---
noted pt hallucinating about "pies" and "breathing curtains". daughter went to hotel. phone number supplied. asked about code status to daughter and patient. both agreed on DNR as POLST spells out. Informed Dr. Nation of code status change. will address in am.
[2019-08-14 06:00] VITALS: BP 121/62
--- NOTE | 2019-08-14 06:32 | NUR ---
reported to days. noted pt on cpap, resting at this time. bed alarm active
[2019-08-14 06:33] LABS: BASOPHILS % (AUTO) 0.5 % (0-1); EOSINOPHILS # (AUTO) 0.1 X10'3 (0-0.9); EOSINOPHILS % (AUTO) 1.1 % (0-6); HEMOGLOBIN 8.5 g/dl (12.0-16.0); LYMPHOCYTES # (AUTO) 1.9 X10'3 (1.1-4.8); LYMPHOCYTES % (AUTO) 20.3 % (21-51); MEAN CORPUSCULAR HEMOGLOBIN 30.3 PG (27.0-31.0); MEAN PLATELET VOLUME 7.9 FL (7.4-10.4); MONOCYTES # (AUTO) 1.2 X10'3 (0-0.9); NEUTROPHILS # (AUTO) 6.1 X10'3 (1.8-7.7); NEUTROPHILS % (AUTO) 65.1 % (42-75); PLATELET COUNT 340 X10'3 (140-440); RED CELL DISTRIBUTION WIDTH 15.8 % (11.5-14.5); WHITE BLOOD COUNT 9.3 X10'3 (4.5-11.0)
[2019-08-14 06:35] LABS: ALANINE AMINOTRANSFERASE 277 U/L (12-78); ALBUMIN 2.6 G/DL (3.4-5.0); ALBUMIN/GLOBULIN RATIO 0.6 (1.1-1.5); ALKALINE PHOSPHATASE 186 IU/L (46-116); ANION GAP 12 (8-16); ASPARTATE AMINO TRANSFERASE 220 U/L (10-37); BILIRUBIN,TOTAL 0.6 MG/DL (0.1-1.0); BLOOD UREA NITROGEN 54 MG/DL (7-18); CHLORIDE 99 MMOL/L (99-107); CREATININE 3.38 MG/DL (0.40-0.90); GLUCOSE 93 MG/DL (70-104); POTASSIUM 4.6 MMOL/L (3.5-5.1); SODIUM 133 MMOL/L (135-145); TOTAL CARBON DIOXIDE 22.3 MMOL/L (24-32); TOTAL PROTEIN 7.1 G/DL (6.4-8.2); eGFR 13 ML/MIN
--- NOTE | 2019-08-14 07:03 | NUR ---
Patient in room ORTHO 4009. I have received report from Shreya MENEZES and had the opportunity to ask questions and assume patient care.
[2019-08-14] MEDS ORDERED: vancomycin/NS 1 GM ADD-VANTAGE 250 ML IV PRN (08:00)
[2019-08-14] MEDS ORDERED: vancomycin 1,000mg inj IV SCH (08:00)
[2019-08-14 08:40] VITALS: BP 129/56
[2019-08-14] MEDS: diltiazem CD 180mg cap (once-daily) PO SCH (08:42)
[2019-08-14] MEDS: lactobacillus rhamnosus 10,000 MMU CELLS/CAPSULE PO SCH ×2 (08:43→20:19)
[2019-08-14] MEDS: aspirin 81mg tablet.DR PO SCH (08:43)
[2019-08-14] MEDS: sennosides 8.6mg tablet PO SCH (08:44)
[2019-08-14] MEDS ORDERED: potassium CL 10mEq/100ml bag 100 ML IV PRN (08:45)
[2019-08-14] MEDS: thyroid, pork 30mg tablet PO SCH (08:45)
[2019-08-14] MEDS ORDERED: potassium Cl 20 mEq SR tablet PO PRN ×2 (08:45)
[2019-08-14 10:00] VITALS: BP 130/53
--- NOTE | 2019-08-14 10:38 | NUR ---
Student documentation: I have reviewed all interventions, assessments performed and documented by Evangelista Ordaz. Student Medication Administration: For this medication-pass time frame, all medication were reviewed, dispensed, administered and documented per hospital policy by Evangelista Ordaz.
[2019-08-14 11:11] LABS: MAGNESIUM 1.9 MG/DL (1.5-2.4)
[2019-08-14] MEDS: ringers solution, lacted 1,000 ML IV SCH ×2 (12:03→18:45)
[2019-08-14] MEDS ORDERED: tPA-cathflo 2 MG/2 ml IV flush IVF ONE ×2 (13:00→15:00)
--- NOTE | 2019-08-14 14:11 | NUR ---
PAGER ID: [phone] MESSAGE: ESTEFANÍA [id number] [facility] 49.2
[2019-08-14 18:00] VITALS: BP 127/62
--- NOTE | 2019-08-14 18:19 | NUR ---
Received report from Valerio MENEZES. assumed care of patient.
--- NOTE | 2019-08-14 18:24 | NUR ---
Problems reprioritized. Patient report given, questions answered & plan of care reviewed with Yee RN.
--- NOTE | 2019-08-14 20:00 | NUR ---
Daughter brought in patient medication (T3/T4). sent medication down to pharmacy
[2019-08-14] MEDS: Melatonin 3mg tablet PO SCH (20:19)
[2019-08-14 22:00] VITALS: BP 130/53
[2019-08-15] MEDS: VANCOMYCIN LEVEL IV SCH (03:00)
[2019-08-15] MEDS: ringers solution, lacted 1,000 ML IV SCH ×2 (03:05→12:59)
[2019-08-15 06:00] VITALS: BP 157/63
[2019-08-15 06:00] LABS: BASOPHILS % (AUTO) 0.6 % (0-1); EOSINOPHILS # (AUTO) 0.2 X10'3 (0-0.9); EOSINOPHILS % (AUTO) 2.5 % (0-6); HEMATOCRIT 23.2 % (35.0-45.0); LYMPHOCYTES # (AUTO) 1.3 X10'3 (1.1-4.8); LYMPHOCYTES % (AUTO) 16.9 % (21-51); MEAN CORPUSCULAR HEMOGLOBIN 30.4 PG (27.0-31.0); MEAN CORPUSCULAR HGB CONC 34.4 g/dL (33.0-36.5); MEAN CORPUSCULAR VOLUME 88.3 FL (78-98); MEAN PLATELET VOLUME 7.5 FL (7.4-10.4); MONOCYTES # (AUTO) 0.8 X10'3 (0-0.9); MONOCYTES % (AUTO) 10.4 % (2-12); NEUTROPHILS # (AUTO) 5.6 X10'3 (1.8-7.7); NEUTROPHILS % (AUTO) 69.6 % (42-75); PLATELET COUNT 356 X10'3 (140-440); RED BLOOD COUNT 2.62 X10'6 (4.20-5.60); RED CELL DISTRIBUTION WIDTH 15.7 % (11.5-14.5)
--- NOTE | 2019-08-15 06:05 | NUR ---
Patient in room ORTHO 4009. I have received report from RUSLAN MENEZES and had the opportunity to ask questions and assume patient care.
--- NOTE | 2019-08-15 06:18 | NUR ---
Gave report to Adam MENEZES.
[2019-08-15 06:48] LABS: ALANINE AMINOTRANSFERASE 177 U/L (12-78); ALBUMIN 2.2 G/DL (3.4-5.0); ALBUMIN/GLOBULIN RATIO 0.5 (1.1-1.5); ALKALINE PHOSPHATASE 144 IU/L (46-116); ANION GAP 9 (8-16); ASPARTATE AMINO TRANSFERASE 85 U/L (10-37); BILIRUBIN,TOTAL 0.6 MG/DL (0.1-1.0); BLOOD UREA NITROGEN 51 MG/DL (7-18); BUN/CREATININE RATIO 16.2 (6.6-38.0); CALCIUM 8.5 MG/DL (8.5-10.1); CHLORIDE 103 MMOL/L (99-107); CREATININE 3.14 MG/DL (0.40-0.90); GLUCOSE 92 MG/DL (70-104); MAGNESIUM 1.7 MG/DL (1.5-2.4); POTASSIUM 4.7 MMOL/L (3.5-5.1); SODIUM 136 MMOL/L (135-145); TOTAL CARBON DIOXIDE 24.4 MMOL/L (24-32); TOTAL PROTEIN 6.3 G/DL (6.4-8.2); eGFR 14 ML/MIN
[2019-08-15 07:11] LABS: VANCOMYCIN,RANDOM 43.1 UG/ML
[2019-08-15] MEDS: sennosides 8.6mg tablet PO SCH (07:11)
[2019-08-15] MEDS: aspirin 81mg tablet.DR PO SCH (07:11)
[2019-08-15] MEDS: lactobacillus rhamnosus 10,000 MMU CELLS/CAPSULE PO SCH ×2 (07:11→20:03)
[2019-08-15] MEDS: diltiazem CD 180mg cap (once-daily) PO SCH (07:11)
[2019-08-15] MEDS: thyroid, pork 30mg tablet PO SCH (07:12)
--- NOTE | 2019-08-15 07:19 | NUR ---
PAGER ID: [phone] MESSAGE: ESTEFANÍA [phone] RE: [facility] [id number] [facility] VANCO 43.1.
[2019-08-15 10:22] VITALS: BP 95/67
[2019-08-15 17:00] VITALS: BP 150/63
[2019-08-15] MEDS: HYDROcodone/acetaminophen 5mg/325mg tablet PO PRN (17:27)
--- NOTE | 2019-08-15 18:05 | NUR ---
Problems reprioritized. Patient report given, questions answered & plan of care reviewed with RUSLAN RN.
--- NOTE | 2019-08-15 18:20 | NUR ---
Received report from Adam MENEZES. assumed care of patient.
[2019-08-15] MEDS: lactose-reduced food (Ensure High Protein) 237ml bottle PO SCH (18:40)
[2019-08-15] MEDS: Melatonin 3mg tablet PO SCH (20:03)
[2019-08-15 22:00] VITALS: BP 141/62
[2019-08-16] MEDS: ringers solution, lacted 1,000 ML IV SCH ×3 (01:27→23:49)
[2019-08-16] MEDS: VANCOMYCIN LEVEL IV SCH (03:00)
[2019-08-16 05:26] LABS: ALANINE AMINOTRANSFERASE 120 U/L (12-78); ALBUMIN 2.1 G/DL (3.4-5.0); ALBUMIN/GLOBULIN RATIO 0.5 (1.1-1.5); ALKALINE PHOSPHATASE 136 IU/L (46-116); ANION GAP 4 (8-16); ASPARTATE AMINO TRANSFERASE 41 U/L (10-37); BILIRUBIN,TOTAL 0.5 MG/DL (0.1-1.0); BLOOD UREA NITROGEN 44 MG/DL (7-18); BUN/CREATININE RATIO 16.7 (6.6-38.0); CALCIUM 8.8 MG/DL (8.5-10.1); CHLORIDE 104 MMOL/L (99-107); CREATININE 2.63 MG/DL (0.40-0.90); GLUCOSE 106 MG/DL (70-104); MAGNESIUM 1.7 MG/DL (1.5-2.4); POTASSIUM 4.7 MMOL/L (3.5-5.1); SODIUM 135 MMOL/L (135-145); TOTAL CARBON DIOXIDE 27.1 MMOL/L (24-32); VANCOMYCIN,RANDOM 36.4 UG/ML; eGFR 17 ML/MIN
[2019-08-16 05:59] LABS: BASOPHILS % (AUTO) 0.4 % (0-1); EOSINOPHILS # (AUTO) 0.3 X10'3 (0-0.9); EOSINOPHILS % (AUTO) 3.5 % (0-6); HEMATOCRIT 23.8 % (35.0-45.0); HEMOGLOBIN 8.1 g/dl (12.0-16.0); LYMPHOCYTES # (AUTO) 1.6 X10'3 (1.1-4.8); LYMPHOCYTES % (AUTO) 16.3 % (21-51); MEAN CORPUSCULAR HEMOGLOBIN 30.6 PG (27.0-31.0); MEAN CORPUSCULAR HGB CONC 34.2 g/dL (33.0-36.5); MEAN CORPUSCULAR VOLUME 89.4 FL (78-98); MEAN PLATELET VOLUME 7.2 FL (7.4-10.4); MONOCYTES # (AUTO) 0.9 X10'3 (0-0.9); MONOCYTES % (AUTO) 9.1 % (2-12); NEUTROPHILS # (AUTO) 6.8 X10'3 (1.8-7.7); NEUTROPHILS % (AUTO) 70.7 % (42-75); PLATELET COUNT 389 X10'3 (140-440); RED BLOOD COUNT 2.66 X10'6 (4.20-5.60); RED CELL DISTRIBUTION WIDTH 15.8 % (11.5-14.5); WHITE BLOOD COUNT 9.7 X10'3 (4.5-11.0)
[2019-08-16 06:00] VITALS: BP 139/73
--- NOTE | 2019-08-16 06:19 | NUR ---
Gave report to Ana MENEZES.
--- NOTE | 2019-08-16 06:25 | NUR ---
Patient in room ORTHO 4009. I have received report from [facility] and had the opportunity to ask questions and assume patient care.
[2019-08-16] MEDS: lactobacillus rhamnosus 10,000 MMU CELLS/CAPSULE PO SCH ×2 (08:19→20:18)
[2019-08-16] MEDS: diltiazem CD 180mg cap (once-daily) PO SCH (08:19)
[2019-08-16] MEDS: aspirin 81mg tablet.DR PO SCH (08:19)
[2019-08-16] MEDS: sennosides 8.6mg tablet PO SCH (08:20)
[2019-08-16] MEDS: lactose-reduced food (Ensure High Protein) 237ml bottle PO SCH ×3 (08:20→18:03)
[2019-08-16] MEDS: thyroid, pork 30mg tablet PO SCH (08:21)
[2019-08-16 10:00] VITALS: BP 168/88
[2019-08-16] MEDS: HYDROcodone/acetaminophen 5mg/325mg tablet PO PRN ×2 (11:07→20:18)
[2019-08-16] MEDS ORDERED: dextrose 50%-water 50ml dispensing syringe IV PRN ×2 (17:00)
[2019-08-16] MEDS ORDERED: MESSAGE TO PHARMACY PO ONE (17:00)
[2019-08-16] MEDS ORDERED: dextrose ORAL solution 15 GM/59 ML bottle PO PRN ×2 (17:00)
[2019-08-16] MEDS ORDERED: insulin Lispro (HumaLOG) vial - multi-dose SQ SCH (17:00)
[2019-08-16] MEDS ORDERED: glucagon, human recombinant 1mg kit SUBCUT PRN (17:00)
--- NOTE | 2019-08-16 17:42 | NUR ---
PAGER ID: [phone] MESSAGE: Jefry Ness, MsJuan Gresham in [id number] just had BP of 205/109, HR 101, and second time 200/111, please advise thank you Ana #[phone]
[2019-08-16 18:00] VITALS: BP 200/111
[2019-08-16] MEDS: metoprolol tartrate 50mg tablet PO SCH (18:03)
--- NOTE | 2019-08-16 18:29 | NUR ---
Problems reprioritized. Patient report given, questions answered & plan of care reviewed with Camron Toussaint
--- NOTE | 2019-08-16 19:00 | NUR ---
Patient in room ORTHO 4009. I have received report from Ana MENEZES and had the opportunity to ask questions and assume patient care.
[2019-08-16] MEDS: Melatonin 3mg tablet PO SCH (20:17)
[2019-08-16] MEDS ORDERED: insulin glargine (Lantus) pen - multi-dose SQ SCH (21:00)
[2019-08-16 22:00] VITALS: BP 141/67
[2019-08-17 06:00] VITALS: BP 159/56
[2019-08-17 06:44] LABS: BASOPHILS # (AUTO) 0.1 X10'3 (0-0.2); BASOPHILS % (AUTO) 0.6 % (0-1); EOSINOPHILS # (AUTO) 0.5 X10'3 (0-0.9); EOSINOPHILS % (AUTO) 5.7 % (0-6); HEMATOCRIT 23.3 % (35.0-45.0); LYMPHOCYTES # (AUTO) 1.2 X10'3 (1.1-4.8); LYMPHOCYTES % (AUTO) 13.4 % (21-51); MEAN CORPUSCULAR HEMOGLOBIN 30.2 PG (27.0-31.0); MEAN CORPUSCULAR HGB CONC 34.3 g/dL (33.0-36.5); MEAN CORPUSCULAR VOLUME 88.3 FL (78-98); MEAN PLATELET VOLUME 7.1 FL (7.4-10.4); MONOCYTES # (AUTO) 0.8 X10'3 (0-0.9); MONOCYTES % (AUTO) 8.4 % (2-12); NEUTROPHILS # (AUTO) 6.5 X10'3 (1.8-7.7); NEUTROPHILS % (AUTO) 71.9 % (42-75); PLATELET COUNT 397 X10'3 (140-440); RED BLOOD COUNT 2.64 X10'6 (4.20-5.60); RED CELL DISTRIBUTION WIDTH 16.2 % (11.5-14.5)
[2019-08-17] MEDS: VANCOMYCIN LEVEL IV SCH (06:53)
[2019-08-17 07:01] LABS: ALANINE AMINOTRANSFERASE 83 U/L (12-78); ALBUMIN/GLOBULIN RATIO 0.5 (1.1-1.5); ALKALINE PHOSPHATASE 119 IU/L (46-116); ANION GAP 8 (8-16); ASPARTATE AMINO TRANSFERASE 26 U/L (10-37); BILIRUBIN,TOTAL 0.4 MG/DL (0.1-1.0); BLOOD UREA NITROGEN 41 MG/DL (7-18); BUN/CREATININE RATIO 15.6 (6.6-38.0); CALCIUM 8.6 MG/DL (8.5-10.1); CHLORIDE 105 MMOL/L (99-107); CREATININE 2.62 MG/DL (0.40-0.90); GLUCOSE 100 MG/DL (70-104); MAGNESIUM 1.7 MG/DL (1.5-2.4); POTASSIUM 4.8 MMOL/L (3.5-5.1); SODIUM 139 MMOL/L (135-145); TOTAL CARBON DIOXIDE 26.5 MMOL/L (24-32); TOTAL PROTEIN 5.8 G/DL (6.4-8.2); VANCOMYCIN,RANDOM 30.6 UG/ML; eGFR 17 ML/MIN
[2019-08-17] MEDS: aspirin 81mg tablet.DR PO SCH (08:28)
[2019-08-17] MEDS: lactobacillus rhamnosus 10,000 MMU CELLS/CAPSULE PO SCH ×2 (08:28→20:42)
[2019-08-17] MEDS: sennosides 8.6mg tablet PO SCH (08:28)
[2019-08-17] MEDS: thyroid, pork 30mg tablet PO SCH (08:28)
[2019-08-17] MEDS: diltiazem CD 180mg cap (once-daily) PO SCH (08:28)
[2019-08-17] MEDS: lactose-reduced food (Ensure High Protein) 237ml bottle PO SCH ×3 (08:29→18:00)
[2019-08-17] MEDS: metoprolol tartrate 50mg tablet PO SCH ×2 (08:31→20:42)
[2019-08-17] MEDS: HYDROcodone/acetaminophen 5mg/325mg tablet PO PRN (08:48)
[2019-08-17 10:00] VITALS: BP 153/95
[2019-08-17] MEDS: HYDROcodone/acetaminophen 10/325mg tab PO PRN (16:33)
[2019-08-17] MEDS: ringers solution, lacted 1,000 ML IV SCH (16:34)
--- NOTE | 2019-08-17 17:09 | NUR ---
Dr Ness notified of HR dropping briefly to 30's. No change at this time.
[2019-08-17 18:00] VITALS: BP 154/64
--- NOTE | 2019-08-17 18:00 | NUR ---
Patient in room ORTHO 4009. I have received report from Pita MENEZES and had the opportunity to ask questions and assume patient care.
--- NOTE | 2019-08-17 19:51 | NUR ---
Per MD Ness's note patient no longer needs hypo/hyperglycemic protocol. Humalog and Lantus orders discontinued at this time r/t no accu checks being assessed on patient and per written MD note that they are not needed.
[2019-08-17] MEDS: Melatonin 3mg tablet PO SCH (20:42)
[2019-08-17 22:00] VITALS: BP 151/65
[2019-08-18] MEDS: VANCOMYCIN LEVEL IV SCH (03:00)
--- NOTE | 2019-08-18 06:11 | NUR ---
Patient in room ORTHO 4009. I have received report from GABRIELLA/CHARLES MENEZES and had the opportunity to ask questions and assume patient care.
--- NOTE | 2019-08-18 06:15 | NUR ---
Problems reprioritized. Patient report given, questions answered & plan of care reviewed with Pita MENEZES.
[2019-08-18 06:40] VITALS: BP 128/57
[2019-08-18 06:48] LABS: BASOPHILS % (AUTO) 0.4 % (0-1); EOSINOPHILS # (AUTO) 0.5 X10'3 (0-0.9); EOSINOPHILS % (AUTO) 5.3 % (0-6); HEMATOCRIT 22.5 % (35.0-45.0); HEMOGLOBIN 7.8 g/dl (12.0-16.0); LYMPHOCYTES # (AUTO) 1.4 X10'3 (1.1-4.8); LYMPHOCYTES % (AUTO) 15.6 % (21-51); MEAN CORPUSCULAR HEMOGLOBIN 30.5 PG (27.0-31.0); MEAN CORPUSCULAR HGB CONC 34.6 g/dL (33.0-36.5); MEAN CORPUSCULAR VOLUME 88.3 FL (78-98); MEAN PLATELET VOLUME 7.1 FL (7.4-10.4); MONOCYTES # (AUTO) 0.8 X10'3 (0-0.9); MONOCYTES % (AUTO) 8.6 % (2-12); NEUTROPHILS # (AUTO) 6.4 X10'3 (1.8-7.7); NEUTROPHILS % (AUTO) 70.1 % (42-75); PLATELET COUNT 392 X10'3 (140-440); RED BLOOD COUNT 2.55 X10'6 (4.20-5.60); RED CELL DISTRIBUTION WIDTH 16.3 % (11.5-14.5); WHITE BLOOD COUNT 9.1 X10'3 (4.5-11.0)
[2019-08-18 07:09] LABS: % IRON SATURATION 11 % (11-46); IRON 20 UG/DL (49-151); TOTAL IRON BINDING CAPACITY 180 UG/DL (259-388)
[2019-08-18 07:14] LABS: ALANINE AMINOTRANSFERASE 76 U/L (12-78); ALBUMIN/GLOBULIN RATIO 0.5 (1.1-1.5); ALKALINE PHOSPHATASE 110 IU/L (46-116); ANION GAP 8 (8-16); ASPARTATE AMINO TRANSFERASE 35 U/L (10-37); BILIRUBIN,TOTAL 0.3 MG/DL (0.1-1.0); BLOOD UREA NITROGEN 43 MG/DL (7-18); CALCIUM 8.2 MG/DL (8.5-10.1); CHLORIDE 104 MMOL/L (99-107); CREATININE 2.68 MG/DL (0.40-0.90); GLUCOSE 114 MG/DL (70-104); MAGNESIUM 1.7 MG/DL (1.5-2.4); SODIUM 137 MMOL/L (135-145); TOTAL CARBON DIOXIDE 25.2 MMOL/L (24-32); TOTAL PROTEIN 5.8 G/DL (6.4-8.2); VANCOMYCIN,RANDOM 23.5 UG/ML; eGFR 17 ML/MIN
[2019-08-18] MEDS: thyroid, pork 30mg tablet PO SCH (07:22)
[2019-08-18] MEDS: sennosides 8.6mg tablet PO SCH (08:00)
[2019-08-18] MEDS: diltiazem CD 180mg cap (once-daily) PO SCH (08:35)
[2019-08-18] MEDS: lactobacillus rhamnosus 10,000 MMU CELLS/CAPSULE PO SCH (08:35)
[2019-08-18] MEDS: aspirin 81mg tablet.DR PO SCH (08:35)
[2019-08-18] MEDS: metoprolol tartrate 50mg tablet PO SCH (08:36)
[2019-08-18] MEDS: ringers solution, lacted 1,000 ML IV SCH (08:39)
[2019-08-18] MEDS: lactose-reduced food (Ensure High Protein) 237ml bottle PO SCH ×2 (08:48→13:35)
[2019-08-18] MEDS ORDERED: CLINDAMYCIN/D5W 900mg/50ml 50 ML IV SCH (09:35)
[2019-08-18] MEDS: HYDROcodone/acetaminophen 10/325mg tab PO PRN (11:21)
[2019-08-18] MEDS ORDERED: cetirizine 10mg tablet PO STA (13:07)
[2019-08-18] MEDS ORDERED: predniSONE 20 mg tablet PO STA (13:07)
[2019-08-18] MEDS ORDERED: famotidine 20mg tablet PO STA (13:07)
== END 2019-08-18 14:35 | DRG 682 ==
LOC: ER 17:30 → SUR 3N 20:53 → UNDOADMIN 20:53 → ED HOLD 21:03 → ORTHO 4S 22:10
PROVIDERS: ADMIT Internal Medicine; ATTEND Family Medicine
PROC: 5A09357 Assistance with Respiratory Ventilation, Less than 24 Consecutive Hours, Continuous Positive Airway Pressure (ICD-10-PCS; principal; 2019-08-14)
PROC: 5A09357 Assistance with Respiratory Ventilation, Less than 24 Consecutive Hours, Continuous Positive Airway Pressure (ICD-10-PCS; 2019-08-15)
PROC: 5A09357 Assistance with Respiratory Ventilation, Less than 24 Consecutive Hours, Continuous Positive Airway Pressure (ICD-10-PCS; 2019-08-16)
DX: N17.9 Acute kidney failure, unspecified (principal); G93.41 Metabolic encephalopathy; E87.1 Hypo-osmolality and hyponatremia; T46.0X5A Adverse effect of cardiac-stimulant glycosides and drugs of similar action, initial encounter; I48.91 Unspecified atrial fibrillation; E11.9 Type 2 diabetes mellitus without complications; E03.9 Hypothyroidism, unspecified; E87.5 Hyperkalemia; G47.33 Obstructive sleep apnea (adult) (pediatric); I10 Essential (primary) hypertension; F32.9 Major depressive disorder, single episode, unspecified; R00.1 Bradycardia, unspecified; R74.0 Nonspecific elevation of levels of transaminase and lactic acid dehydrogenase [LDH]; K75.9 Inflammatory liver disease, unspecified; R58 Hemorrhage, not elsewhere classified; D64.9 Anemia, unspecified; Y92.89 Other specified places as the place of occurrence of the external cause; Z88.1 Allergy status to other antibiotic agents; Z88.6 Allergy status to analgesic agent; Z88.8 Allergy status to other drugs, medicaments and biological substances; Z79.82 Long term (current) use of aspirin; Z90.710 Acquired absence of both cervix and uterus; Z79.01 Long term (current) use of anticoagulants; Z79.84 Long term (current) use of oral hypoglycemic drugs; Z79.899 Other long term (current) drug therapy; Z91.81 History of falling
CPT/HCPCS: 36415; 70450; 71045; 80053; 80162; 80202; 81001; 82948; 83540; 83550; 83735; 85025; 85610; 87081; 93005; 94660; 94760; 97116; 97161; 97530; 99285; G0378; J1815; J2997; J3490; J7030; J7120; J7512

== ENCOUNTER 2020-06-30 08:11 | Day surgery (SDC) | payer MEDICARE ==
[2020-06-29 13:26] LABS: BASOPHILS % (AUTO) 0.6 % (0-1); EOSINOPHILS # (AUTO) 0.2 X10'3 (0-0.9); EOSINOPHILS % (AUTO) 3.4 % (0-6); HEMATOCRIT 36.5 % (35.0-45.0); HEMOGLOBIN 11.9 g/dl (12.0-16.0); LYMPHOCYTES # (AUTO) 2.7 X10'3 (1.1-4.8); LYMPHOCYTES % (AUTO) 38.1 % (21-51); MEAN CORPUSCULAR HEMOGLOBIN 29.9 PG (27.0-31.0); MEAN CORPUSCULAR HGB CONC 32.7 g/dL (33.0-36.5); MEAN CORPUSCULAR VOLUME 91.3 FL (78-98); MEAN PLATELET VOLUME 8.9 FL (7.4-10.4); MONOCYTES # (AUTO) 0.7 X10'3 (0-0.9); MONOCYTES % (AUTO) 10.3 % (2-12); NEUTROPHILS # (AUTO) 3.4 X10'3 (1.8-7.7); NEUTROPHILS % (AUTO) 47.6 % (42-75); PLATELET COUNT 192 X10'3 (140-440); RED CELL DISTRIBUTION WIDTH 17.9 % (11.5-14.5); WHITE BLOOD COUNT 7.2 X10'3 (4.5-11.0)
[2020-06-29 13:36] LABS: ALBUMIN 3.5 G/DL (3.4-5.0); ANION GAP 4 (8-16); BLOOD UREA NITROGEN 25 MG/DL (7-18); BUN/CREATININE RATIO 26.6 (6.6-38.0); CHLORIDE 104 MMOL/L (99-107); CREATININE 0.94 MG/DL (0.40-0.90); GLUCOSE 82 MG/DL (70-104); SODIUM 139 MMOL/L (135-145); TOTAL CARBON DIOXIDE 30.6 MMOL/L (24-32); eGFR 57 ML/MIN
[~2020-06-30] VITALS: Ht 160 cm; Wt 88.7 kg
[2020-06-30] VITALS (16 sets, daily range): BP systolic 92–154; BP diastolic 42–75
[~2020-06-30 08:11] MED LIST changes: -AMIO200T61 PO; -ASPI81TA52 PO; -BETA300T PO; -CAT2P TD; -CHOL100053 PO; -CHRO400T10 PO; -DIGO125T PO; +FERR324T8 PO; +FOLI0.8T19 PO; +ICOS1CAP PO; +LEVO25TA2 PO; +LIOT5TAB10 PO; -MELA1TAB9 PO; -METF-438 PO; +METO50TA17 PO; -MULT-955 PO; -NEBI10TA2 PO; -NIA500ERT PO; -OMEG1CAP46 PO; +POTA-82 PO; -PRAS1TAB3 PO; -RAW PROBIOTICS; -TESTOSTERONE; -THIO300C PO; -THRE500T PO; -THYR120T2 PO; -VITA40TA PO; -[UNRECOGNIZED DRUG - CODE]; -[UNRECOGNIZED DRUG - CODE] PO; -[UNRECOGNIZED DRUG - OTHER]; -[UNRECOGNIZED DRUG - OTHER]; -[UNRECOGNIZED DRUG - OTHER]
[2020-06-30] MEDS ORDERED: MIDAZolam 1mg/ml 10ml vial IV ONE (08:35)
[2020-06-30] MEDS ORDERED: morphine 10mg/ml inj. IV ONE (08:35)
[2020-06-30] MEDS ORDERED: normal saline 1000ml 1,000 ML IV SCH (08:35)
[2020-06-30] MEDS ORDERED: AMIO200T27 PO (09:45)
[2020-06-30] MEDS ORDERED: MELA5TAB14 PO (09:45)
[2020-06-30] MEDS ORDERED: POTA10TA36 PO (09:45)
[2020-06-30] MEDS ORDERED: FURO-149 PO (09:45)
[2020-06-30] MEDS ORDERED: METF-438 PO (09:45)
[2020-06-30] MEDS ORDERED: APIX5TAB5 PEG (09:45)
[2020-06-30] MEDS ORDERED: LIOT25TA12 PO (09:45)
[2020-06-30] MEDS ORDERED: [UNRECOGNIZED DRUG - CODE] PO (09:45)
== END 2020-06-30 12:20 | disposition home or self-care (01) ==
LOC: SSTAY O 08:11 → EDSTATUS 10:30 → SSTAY O 12:20
PROVIDERS: ATTEND Internal Medicine Cardiovascular Disease
DX: I48.91 Unspecified atrial fibrillation (principal); I10 Essential (primary) hypertension; I34.0 Nonrheumatic mitral (valve) insufficiency; I37.1 Nonrheumatic pulmonary valve insufficiency
CPT/HCPCS: 36415; 80048; 85025; 93312; 93325; J2250; J2270; J7030

== ENCOUNTER 2020-08-18 10:33 | Outpatient (CLI) | payer MEDICARE ==
[~2020-08-18 10:33] MED LIST changes: +AMIO200T27 PO; +APIX5TAB5 PEG; -FOLI0.8T19 PO; +FURO-149 PO; -LEVO25TA2 PO; +LIOT25TA12 PO; -LIOT5TAB10 PO; +MELA5TAB14 PO; +METF-438 PO; -POTA-82 PO; +POTA10TA36 PO; -RIVA20TA PO; +[UNRECOGNIZED DRUG - CODE] PO
[2020-08-18 11:06] LABS: TOTAL HEMOGLOBIN 11.6 G/dl (12.0-16.0)
== END 2020-08-18 23:59 | disposition home or self-care (01) ==
LOC: RT 10:33
PROVIDERS: ATTEND Internal Medicine Cardiovascular Disease
DX: R06.02 Shortness of breath (principal); Z79.899 Other long term (current) drug therapy
CPT/HCPCS: 71046; 85018; 94010; 94727; 94729

== ENCOUNTER 2022-03-01 10:23 | Outpatient (CLI) | payer MEDICARE ==
[~2022-03-01 10:23] MED LIST changes: +POTA-205 PO; -POTA10TA36 PO
[2022-03-01 10:47] LABS: TOTAL HEMOGLOBIN 14.2 G/dl (12.0-16.0)
== END 2022-03-01 23:59 | disposition home or self-care (01) ==
LOC: RT 10:23
PROVIDERS: ATTEND Internal Medicine Cardiovascular Disease
DX: I70.0 Atherosclerosis of aorta (principal); M47.814 Spondylosis without myelopathy or radiculopathy, thoracic region; Z79.899 Other long term (current) drug therapy
CPT/HCPCS: 71046; 85018; 94010; 94727; 94729

== ENCOUNTER 2022-09-20 08:20 | Day surgery (SDC) | payer MEDICARE ==
[~2022-09-20] VITALS: Ht 157.5 cm; Wt 113.9 kg
[2022-09-20] VITALS (11 sets, daily range): BP systolic 97–193; BP diastolic 58–82
[2022-09-20 09:24] LABS: BASOPHILS % (AUTO) 0.9 % (0-1); EOSINOPHILS # (AUTO) 0.2 X10'3 (0-0.9); EOSINOPHILS % (AUTO) 4.8 % (0-6); HEMATOCRIT 38.5 % (35.0-45.0); LYMPHOCYTES # (AUTO) 1.8 X10'3 (1.1-4.8); LYMPHOCYTES % (AUTO) 35.1 % (21-51); MEAN CORPUSCULAR HEMOGLOBIN 31.2 PG (27.0-31.0); MEAN CORPUSCULAR HGB CONC 33.9 g/dL (33.0-36.5); MEAN CORPUSCULAR VOLUME 92.1 FL (78-98); MEAN PLATELET VOLUME 8.9 FL (7.4-10.4); MONOCYTES # (AUTO) 0.5 X10'3 (0-0.9); MONOCYTES % (AUTO) 9.6 % (2-12); NEUTROPHILS # (AUTO) 2.5 X10'3 (1.8-7.7); NEUTROPHILS % (AUTO) 49.6 % (42-75); PLATELET COUNT 174 X10'3 (140-440); RED BLOOD COUNT 4.18 X10'6 (4.20-5.60); WHITE BLOOD COUNT 5.1 X10'3 (4.5-11.0)
[2022-09-20 09:29] LABS: APTT 25 SECONDS (22-32)
[2022-09-20] MEDS ORDERED: LORazepam 0.5 MG tablet PO PRN (09:35)
[2022-09-20] MEDS ORDERED: diphenhydrAMINE 25mg capsule PO PRN (09:35)
[2022-09-20] MEDS ORDERED: LISI2.5T14 PO (09:48)
[2022-09-20] MEDS ORDERED: ROSU20TA31 PO (09:48)
[2022-09-20] MEDS ORDERED: LEVO50TA8 PO (09:48)
[2022-09-20] MEDS ORDERED: MULT-1085 PO (09:56)
[2022-09-20] MEDS ORDERED: RED600CA2 PO (09:56)
[2022-09-20 10:01] LABS: ALBUMIN 3.4 G/DL (3.4-5.0); ANION GAP 10 (8-16); BLOOD UREA NITROGEN 21 MG/DL (7-18); BUN/CREATININE RATIO 18.3 (6.6-38.0); CALCIUM 8.6 MG/DL (8.5-10.1); CHLORIDE 104 MMOL/L (99-107); CREATININE 1.15 MG/DL (0.40-0.90); GLUCOSE 120 MG/DL (70-104); POTASSIUM 4.3 MMOL/L (3.5-5.1); SODIUM 140 MMOL/L (135-145); eGFR 45 ML/MIN
[2022-09-20] MEDS ORDERED: fentaNYL/PF 50MCG/1 ML 2ML syringe ONE (10:49)
[2022-09-20] MEDS ORDERED: midazolam 1 mg/ML 2ml injection ONE (10:49)
[2022-09-20] MEDS ORDERED: verapamil 2.5 mg/ml inj IV ONE (10:49)
[2022-09-20] MEDS ORDERED: nitroGLYCERIN-Tridil 50MG/D5W 250 ML IV ONE (10:49)
[2022-09-20] MEDS ORDERED: LIDOcaine 1% (10mg/ml) 2ml vial ONE (10:50)
[2022-09-20] MEDS ORDERED: heparin 1,000unit/ml 10ml vial 10 ML ONE (10:50)
[2022-09-20] MEDS ORDERED: iohexol 350MG/ML 100ml bottle IV ONE ×2 (10:50→12:08)
[2022-09-20] MEDS ORDERED: LIDOcaine 1% 30ml preserv. free vial ONE (11:56)
[2022-09-20] MEDS ORDERED: heparin 1,000 UNITS/NS 500ml 500 ML ONE (12:38)
[2022-09-20] MEDS ORDERED: FENTANYL CITRATE/PF 50 MCG/1 ML VIAL ONE (13:16)
[2022-09-20 14:42] LABS: ISTAT HGB ART 12.6 g/dl (12.0-16.0); ISTAT Hct ART 37 %PCV (35-45); ISTAT O2 SATURATION ARTERIAL 94 % (95-98); ISTAT SOURCE BLNK
[2022-09-20 14:43] LABS: ISTAT Hct MIX 36 %PCV (35-45); ISTAT O2 SATURATION MIX VENOUS 65 % (60-80); ISTAT SOURCE VEN
[2022-09-20] MEDS ORDERED: HYDROcodone/acetaminophen 5mg/325mg tablet PO PRN (16:15)
[2022-09-20] MEDS ORDERED: HYDROcodone/acetaminophen 10/325mg tab PO PRN (16:15)
== END 2022-09-20 19:50 | disposition home or self-care (01) ==
LOC: SSTAY O 08:20
PROVIDERS: ATTEND Internal Medicine Cardiovascular Disease
DX: I25.10 Atherosclerotic heart disease of native coronary artery without angina pectoris (principal); I35.0 Nonrheumatic aortic (valve) stenosis; I42.9 Cardiomyopathy, unspecified; F32.9 Major depressive disorder, single episode, unspecified; G47.33 Obstructive sleep apnea (adult) (pediatric); Z79.899 Other long term (current) drug therapy; I48.0 Paroxysmal atrial fibrillation; I42.0 Dilated cardiomyopathy; E78.5 Hyperlipidemia, unspecified; Z98.890 Other specified postprocedural states; Z96.653 Presence of artificial knee joint, bilateral; Z96.612 Presence of left artificial shoulder joint; Z96.611 Presence of right artificial shoulder joint; Z98.41 Cataract extraction status, right eye; Z98.42 Cataract extraction status, left eye; Z98.51 Tubal ligation status; Z88.1 Allergy status to other antibiotic agents; Z88.8 Allergy status to other drugs, medicaments and biological substances
CPT/HCPCS: 36415; 80048; 82803; 82948; 85014; 85025; 85610; 85730; 93005; 93460; 93567; C1751; C1760; C1769; C1894; J1644; J2250; J3010; J3490; J7030; Q0163; Q9967; 99152; 99153; A6258; A6402; A6449; C1725

== ENCOUNTER 2022-10-19 10:40 | Outpatient (CLI) | payer MEDICARE ==
[~2022-10-19 10:40] MED LIST changes: -DILT120C88 PO; -ICOS1CAP PO; +IODIXANOL 320 MG/ML INFUS..BTL 100ML IV ONE; +LEVO50TA8 PO; -LIOT25TA12 PO; +LISI2.5T14 PO; +MULT-1085 PO; -PROG100C11 PO; +RED600CA2 PO; +ROSU20TA31 PO; -[UNRECOGNIZED DRUG - CODE] PO
[2022-10-19 11:27] LABS: BASOPHILS % (AUTO) 0.7 % (0-1); EOSINOPHILS # (AUTO) 0.2 X10'3 (0-0.9); EOSINOPHILS % (AUTO) 3.1 % (0-6); HEMATOCRIT 34.3 % (35.0-45.0); HEMOGLOBIN 11.2 g/dl (12.0-16.0); LYMPHOCYTES # (AUTO) 2.2 X10'3 (1.1-4.8); LYMPHOCYTES % (AUTO) 37.8 % (21-51); MEAN CORPUSCULAR HEMOGLOBIN 30.6 PG (27.0-31.0); MEAN CORPUSCULAR HGB CONC 32.7 g/dL (33.0-36.5); MEAN CORPUSCULAR VOLUME 93.6 FL (78-98); MEAN PLATELET VOLUME 8.7 FL (7.4-10.4); MONOCYTES # (AUTO) 0.6 X10'3 (0-0.9); MONOCYTES % (AUTO) 10.9 % (2-12); NEUTROPHILS # (AUTO) 2.7 X10'3 (1.8-7.7); NEUTROPHILS % (AUTO) 47.5 % (42-75); PLATELET COUNT 177 X10'3 (140-440); RED BLOOD COUNT 3.66 X10'6 (4.20-5.60); RED CELL DISTRIBUTION WIDTH 14.4 % (11.5-14.5); WHITE BLOOD COUNT 5.7 X10'3 (4.5-11.0)
[2022-10-19 11:41] LABS: ALANINE AMINOTRANSFERASE 26 U/L (12-78); ALBUMIN 3.3 G/DL (3.4-5.0); ALBUMIN/GLOBULIN RATIO 0.8 (1.1-1.5); ALKALINE PHOSPHATASE 53 IU/L (46-116); ANION GAP 7 (8-16); APTT 29 SECONDS (22-32); ASPARTATE AMINO TRANSFERASE 21 U/L (10-37); BILIRUBIN,TOTAL 0.4 MG/DL (0.1-1.0); BLOOD UREA NITROGEN 20 MG/DL (7-18); BUN/CREATININE RATIO 19.8 (6.6-38.0); CALCIUM 9.1 MG/DL (8.5-10.1); CHLORIDE 103 MMOL/L (99-107); CREATININE 1.01 MG/DL (0.40-0.90); GLUCOSE 94 MG/DL (70-104); POTASSIUM 4.4 MMOL/L (3.5-5.1); SODIUM 140 MMOL/L (135-145); TOTAL CARBON DIOXIDE 30.3 MMOL/L (24-32); TOTAL PROTEIN 7.6 G/DL (6.4-8.2); eGFR 52 ML/MIN
== END 2022-10-19 23:59 | disposition home or self-care (01) ==
LOC: VAS 10:40
PROVIDERS: ATTEND Internal Medicine Cardiovascular Disease
DX: I65.23 Occlusion and stenosis of bilateral carotid arteries (principal); I70.0 Atherosclerosis of aorta; I35.0 Nonrheumatic aortic (valve) stenosis; R06.02 Shortness of breath; N28.1 Cyst of kidney, acquired; M47.814 Spondylosis without myelopathy or radiculopathy, thoracic region; M53.84 Other specified dorsopathies, thoracic region; Z96.612 Presence of left artificial shoulder joint
CPT/HCPCS: 36415; 71046; 71275; 74174; 80053; 85025; 85610; 85730; 93880; Q9967

== ENCOUNTER 2022-11-16 13:52 | Outpatient (CLI) | payer MEDICARE ==
[~2022-11-16] VITALS: Ht 154.9 cm; Wt 113.4 kg
[2022-11-16 16:49] VITALS: BP 137/70
--- NOTE | 2022-11-16 16:50 | NUR ---
Patient and family were in the [facility] clinic today to consult with Dr. Watts, Dr. Freddy Garcia and Dr. Higgins. [facility] test completed. Vital signs measured. Patient education reviewed and questions answered.
== END 2022-11-16 23:59 | disposition home or self-care (01) ==
LOC: TAVR 13:52
PROVIDERS: ATTEND Internal Medicine Cardiovascular Disease
DX: I35.0 Nonrheumatic aortic (valve) stenosis (principal); R06.02 Shortness of breath; I65.29 Occlusion and stenosis of unspecified carotid artery; R00.1 Bradycardia, unspecified; I45.10 Unspecified right bundle-branch block
CPT/HCPCS: Q9967

== ENCOUNTER 2023-01-08 11:46 | Outpatient (CLI) | payer MEDICARE ==
[~2023-01-08 11:46] MED LIST changes: -APIX5TAB5 PEG; +APIX5TAB5 PO; +CHOL500044 PO; -IODIXANOL 320 MG/ML INFUS..BTL 100ML IV ONE; -METF-438 PO; +METF-900 PO; +MULT-1130 PO; +RAW PROBIOTICS PO; -RED600CA2 PO; +[UNRECOGNIZED DRUG - CODE] PO
== END 2023-01-08 23:59 | disposition home or self-care (01) ==
LOC: CARD DIAG 11:46
PROVIDERS: ATTEND Internal Medicine Cardiovascular Disease
DX: Z48.812 Encounter for surgical aftercare following surgery on the circulatory system (principal); I08.8 Other rheumatic multiple valve diseases; Z95.2 Presence of prosthetic heart valve
CPT/HCPCS: 93005